=== PATIENT | female | born 1990 | race Asian ===

== ENCOUNTER 2017-10-12 22:59 | Emergency (ER) | payer OTHER ==
[2017-10-12] MEDS: ACETAMINOPHEN 325 MG TAB PO (23:18)
[2017-10-12] MEDS: IBUPROFEN 600 MG TAB PO (23:18)
== END 2017-10-13 01:55 | disposition home or self-care (01) ==
LOC: FTE 10-13 01:55
DX: S69.91XA Unspecified injury of right wrist, hand and finger(s), initial encounter (principal); Y04.8XXA Assault by other bodily force, initial encounter
CPT/HCPCS: 29125; 73110-RT; 99283-25

== ENCOUNTER 2018-12-07 03:59 | Emergency (ER) | payer OTHER ==
[2018-12-07] MEDS: HYDROCODONE/APAP (10/325) TAB PO (04:46)
[2018-12-07] MEDS: ONDANSETRON (ODT) 4 MG TAB ODT (04:46)
== END 2018-12-07 07:30 | disposition home or self-care (01) ==
LOC: E/R 03:59
DX: S39.92XA Unspecified injury of lower back, initial encounter (principal); X58.XXXA Exposure to other specified factors, initial encounter; Y92.9 Unspecified place or not applicable
CPT/HCPCS: 72072; 72100; 99283-25